=== PATIENT | male | born 1975 | race Caucasian/White ===

== ENCOUNTER 2017-04-20 15:09 | Emergency (ER) | payer OTHER, BC ==
[2017-04-20] MEDS ORDERED: Ketorolac 30 MG/ML SDV IM ONE (15:30)
--- NOTE | 2017-04-21 01:59 | EDM.PDOC ---
ED HPI GENERAL MEDICAL PROBLEM - General Chief Complaint: Back Pain or Injury Stated Complaint: BACK PAIN Time Seen by Provider: 04/20/17 15:20 Source of Information: Reports: Patient History Limitations: Reports: No Limitations - History of Present Illness INITIAL COMMENTS - FREE TEXT/NARRATIVE: Pt. states that he was pushing snow with a shovel, and states that the blade of the shovel hit uneven ground. Pt. states that this caused him to awkwardly turn at the waist, unjuring his back. He states that the pain is located in mid lower back and radiates down his posterior L leg and into his 1st and 2nd toes. He states this injury happened just prior to coming to the ER. He denies any "cracking" or "popping" and denies any incontinence or retention of stool or feces. Onset Date: 04/21/17 Location: Reports: Back, Lower Extremity, Left, Radiates to Quality: Reports: Ache Severity: Moderate Left Back Pain Score (Numeric/FACES): 8 - Related Data Allergies Allergy/AdvReac Type Severity Reaction Status Date / Time acetaminophen [From Tylox] AdvReac Dizziness Verified 04/20/17 15:32 hydromorphone [From Dilaudid] AdvReac Dizziness Verified 04/20/17 15:32 oxycodone AdvReac Dizziness Verified 04/20/17 15:32 Home Meds: Home Meds Cyclobenzaprine [Flexeril] 10 mg PO BID PRN 04/20/17 [History] Past Medical History - Past Health History Medical/Surgical History: Denies Medical/Surgical History Social & Family History - Tobacco Use Smoking Status *Q: Current Every Day Smoker Years of Tobacco use: 30 Packs/Tins Daily: 1 - Recreational Drug Use Recreational Drug Use: Yes Drug Use in Last 12 Months: Yes Recreational Drug Type: Reports: Marijuana/Hashish Recreational Drug Use Frequency: Socially ED ROS GENERAL - Review of Systems Review Of Systems: See Below Constitutional: Reports: No Symptoms Respiratory: Reports: No Symptoms Cardiovascular: Reports: No Symptoms GI/Abdominal: Reports: No Symptoms : Reports: No Symptoms Musculoskeletal: Reports: Back Pain Skin: Reports: No Symptoms Neurological: Reports: Paresthesia (radiculopathy to R lower extremity) ED EXAM,LOWER BACK PAIN/INJURY - Physical Exam Exam: See Below Exam Limited By: No Limitations General Appearance: Alert, WD/WN, No Apparent Distress Respiratory/Chest: No Respiratory Distress, Lungs Clear, Normal Breath Sounds, No Accessory Muscle Use, Chest Non-Tender Cardiovascular: Normal Peripheral Pulses, Regular Rate, Rhythm, No Edema, No Gallop, No JVD, No Murmur, No Rub Extremities: Normal Inspection, Normal Range of Motion, Non-Tender, No Pedal Edema, Normal Capillary Refill Neurological: Alert, Normal Dorsiflexion, CN II-XII Intact, Normal Plantar Flexion, Normal Reflexes, Straight Leg Raise (L), Difficulty Walking DTR - Lower Extremities: 2+: Knee (R), Knee (L) Course - Vital Signs Last Recorded V/S: Last Vital Signs Temp 35.7 C 04/20/17 15:33 Pulse 110 H 04/20/17 15:33 Resp 16 04/20/17 15:33 BP 142/99 H 04/20/17 15:33 Pulse Ox 99 04/20/17 15:33 - Orders/Labs/Meds Orders: Active Orders 24 hr Category Date Time Status Lumbar Spine 2 or 3V [CR] Stat Exams 04/20/17 15:21 Taken Meds: Medications Discontinued Medications Generic Name Dose Route Start Last Admin Trade Name Bennyq PRN Reason Stop Dose Admin Ketorolac Tromethamine 30 mg 04/20/17 15:30 04/20/17 15:47 Toradol IM 04/20/17 15:31 30 mg ONETIME ONE Administration Orphenadrine Citrate 60 mg 04/20/17 15:31 04/20/17 15:46 Norflex IM 04/20/17 15:32 60 mg ONETIME ONE Administration - Radiology Interpretation Free Text/Narrative:: lumbar series was negative Departure - Departure Time of Disposition: 16:45 Disposition: Home, Self-Care 01 Clinical Impression: Sciatica, Low back pain radiating to left lower extremity - Discharge Information Instructions: Acetaminophen; Hydrocodone tablets or capsules, Cyclobenzaprine tablets, Back Pain, Adult, [id number], Low Back Strain Rehab-SportsMed Referrals: PCP,None [Primary Care Provider] - Forms: ED Department Discharge Additional Instructions: Physical therapy will contact you regarding an appointment date and time. [facility] 5/325mg 1 every 6 hours as needed for pain. Flexeril 10mg three times daily. Ibuprofen 600mg every 6 hours. Do the exercises we discussed. Walk as much as possible. - My Orders Last 24 Hours: My Active Orders 04/20/17 15:21 Lumbar Spine 2 or 3V [CR] Stat - Assessment/Plan Last 24 Hours: My Active Orders 04/20/17 15:21 Lumbar Spine 2 or 3V [CR] Stat
== END 2017-04-20 16:45 | disposition home or self-care (01) ==
LOC: VM.ED 15:09
DX: M54.42 Lumbago with sciatica, left side (principal); Z88.6 Allergy status to analgesic agent; Z88.5 Allergy status to narcotic agent; F17.210 Nicotine dependence, cigarettes, uncomplicated
CPT/HCPCS: 72100; 96374; 96375; 99283; J1885; J2360

== ENCOUNTER 2020-11-20 06:41 | Emergency (ER) | payer MEDICAID ==
--- NOTE | 2020-11-20 07:06 | EDM.PDOC ---
ED HPI GENERAL MEDICAL PROBLEM - General Chief Complaint: Abdominal Pain Stated Complaint: severe ab pain Time Seen by Provider: 11/20/20 06:45 Source of Information: Reports: Patient, Family History Limitations: Reports: No Limitations - History of Present Illness INITIAL COMMENTS - FREE TEXT/NARRATIVE: 45-year-old white male who presents with sudden onset of right-sided abdominal pain x1 hour patient states it woke him up with a sudden sharp shooting pain that is progressively gotten worse now a 10 out of 10 sharp and stabbing just all over the right side of abdomen. Patient states he has been fine up until this he has had no other complaints at all he denies any nausea or vomiting or fever at this time no anorexia he has back pain which is chronic but states it is not related to this this is totally different. No other sick contacts positive p.o. yesterday with no issues Onset: Today Duration: Hour(s): Location: Reports: Abdomen Quality: Reports: Stabbing Severity: Severe Improves with: Reports: None Worsens with: Reports: None Associated Symptoms: Reports: No Other Symptoms Right Middle Abdomen Pain Score (Numeric/FACES): 10 - Related Data Allergies Allergy/AdvReac Type Severity Reaction Status Date / Time acetaminophen [From Tylox] AdvReac Dizziness Verified 04/20/17 15:32 hydromorphone [From Dilaudid] AdvReac Dizziness Verified 04/20/17 15:32 oxycodone AdvReac Dizziness Verified 04/20/17 15:32 Home Meds: Home Meds Adalimumab [Humira Pen] 40 mg SQ Q14D 11/20/20 [History] DULoxetine [Cymbalta] 30 mg PO DAILY 11/20/20 [History] Ibuprofen 800 mg PO BID 11/20/20 [History] Pregabalin [Lyrica] 200 mg PO TID 11/20/20 [History] Sildenafil Citrate [Viagra] 50 mg PO DAILY PRN 11/20/20 [History] Past Medical History - Past Health History Medical/Surgical History: Denies Medical/Surgical History ED ROS GENERAL - Review of Systems Review Of Systems: See Below Constitutional: Reports: No Symptoms HEENT: Reports: No Symptoms Respiratory: Reports: No Symptoms Cardiovascular: Reports: No Symptoms Endocrine: Reports: No Symptoms GI/Abdominal: Reports: Abdominal Pain. Denies: Constipation, Diarrhea, Decreased Appetite, Flatus, Nausea, Vomiting : Reports: No Symptoms Musculoskeletal: Reports: No Symptoms Skin: Reports: No Symptoms Neurological: Reports: No Symptoms Psychiatric: Reports: No Symptoms Hematologic/Lymphatic: Reports: No Symptoms Immunologic: Reports: No Symptoms ED EXAM, GI/ABD - Physical Exam Exam: See Below Exam Limited By: No Limitations General Appearance: Alert, WD/WN, No Apparent Distress, Other (Patient looks uncomfortable vital signs are noted) Eyes: Bilateral: Normal Appearance Nose: Normal Inspection, Normal Mucosa, No Blood Throat/Mouth: Normal Inspection, Normal Lips, Normal Teeth, Normal Gums, Normal Oropharynx, Normal Voice, No Airway Compromise Head: Atraumatic, Normocephalic Neck: Normal Inspection, Supple, Non-Tender, Full Range of Motion Respiratory/Chest: No Respiratory Distress, Lungs Clear, Normal Breath Sounds, No Accessory Muscle Use, Chest Non-Tender Cardiovascular: Normal Peripheral Pulses, Regular Rate, Rhythm, No Edema, No Gallop, No JVD, No Murmur, No Rub GI/Abdominal Exam: Normal Bowel Sounds, Soft, No Organomegaly, No Abnormal Bruit, No Mass, Pelvis Stable, Tender, Other (Negative obturator negative psoas positive rebound diffusely across the right lower and upper quadrant negative heel slap negative pelvic rock no peritoneal signs). No: Non-Tender, No Distention, Guarding, Rigid, Rebound Back Exam: Normal Inspection, Full Range of Motion. No: CVA Tenderness (L), CVA Tenderness (R) Extremities: Normal Inspection, Normal Range of Motion, Non-Tender, No Pedal Edema, Normal Capillary Refill Neurological: Alert, Oriented, CN II-XII Intact, Normal Cognition Psychiatric: Normal Affect, Normal Mood, Anxious Skin Exam: Warm, Dry, Intact, Normal Color, No Rash Lymphatic: No Adenopathy #1 Interpretation EKG Date: 11/20/20 Time: 07:00 Rhythm: NSR [place]: Normal P-Wave: Present QRS: Normal ST-T: Normal QT: Normal Course - Vital Signs Text/Narrative:: CBC CMP urinalysis EKG CT abdomen pelvis we will start with Toradol 30 mg IV with a bolus Patient's only surgical history is his right wrist No family abdominal history Labs within normal limit CT abdomen pelvis with IV contrast impression colonic diverticulosis no evidence of diverticulitis is no other acute findings Recheck patient states he feels little bit better after medications will give Bentyl 20 mg IM and recheck Patient was rechecked after given Bentyl says his pain is about a 2 out of 3 vital signs are all within normal limits normal blood pressure heart rate Last Recorded V/S: Last Vital Signs Temp 36.6 C 11/20/20 06:56 Pulse 99 11/20/20 07:43 Resp 16 11/20/20 07:43 BP 110/72 11/20/20 07:43 Pulse Ox 99 11/20/20 07:43 - Orders/Labs/Meds Labs: Laboratory Tests 11/20/20 11/20/20 11/20/20 Range/Units 06:52 06:52 06:58 WBC 12.0 H (4.0-10.0) x10^3/uL RBC 4.71 (4.5-6.0) x10^6/uL Hgb 15.0 (14.0-18.0) g/dL Hct 41.1 (40.0-52.0) % MCV 87.3 (78.0-93.0) fL MCH 31.8 (26.0-32.0) pg MCHC 36.5 H (32.0-36.0) g/dL RDW Coeff of Nalini 12.6 (10.0-15.0) % Plt Count 246 (130-400) x10^3/uL Immature Gran % (Auto) 0.20 (0.00-0.43) % Neut % (Auto) 51.8 (50.0-80.0) % Lymph % (Auto) 37.8 (25.0-50.0) % Esmeralda % (Auto) 9.5 (2.0-11.0) % Eos % (Auto) 0.4 (0.0-4.0) % Baso % (Auto) 0.3 (0.2-1.2) % Neut # (Auto) 6.2 (1.8-7.7) x10^3/uL Lymph # (Auto) 4.5 (1.0-4.8) x10^3/uL Esmeralda # (Auto) 1.1 H (0.0-0.8) x10^3/uL Eos # (Auto) 0.1 (0.0-0.5) x10^3/uL Baso # (Auto) 0.0 (0.0-0.2) x10^3/uL Immature Gran # (Auto) 0.02 (0.00-0.07) x10^3/uL Sodium 139 (136-145) mmol/L Potassium 3.6 (3.5-5.1) mmol/L Chloride 102 (98-107) mmol/L Carbon Dioxide 19 L (21-32) mmol/L Anion Gap 21.6 H (5-15) mmol/L BUN 18 (7-18) mg/dL Creatinine 1.2 (0.70-1.30) mg/dL Est Cr Clr Drug Dosing 79.37 mL/min Estimated GFR (MDRD) > 60 Glucose 113 H (70-99) mg/dL Calcium 9.2 (8.5-10.1) mg/dL Corrected Calcium 9.1 (8.5-10.1) mg/dL Total Bilirubin 0.4 (0.2-1.0) mg/dL AST 28 (15-37) U/L ALT 25 (16-63) U/L Alkaline Phosphatase 81 (46-116) U/L Total Protein 7.7 (6.4-8.2) g/dL Albumin 4.1 (3.4-5.0) g/dL Globulin 3.6 Albumin/Globulin Ratio 1.14 Urine Color Yellow (YELLOW) Urine Appearance Clear (CLEAR) Urine pH 6.5 (5.0-8.0) Ur Specific [place] 1.020 Urine Protein 30 H (NEGATIVE) mg/dL Urine Glucose (UA) Negative (NEGATIVE) mg/dL Urine Ketones Trace H (NEGATIVE) mg/dL Urine Occult Blood Negative (NEGATIVE) Urine Nitrite Negative (NEGATIVE) Urine Bilirubin Negative (NEGATIVE) Urine Urobilinogen 0.2 (0.2) EU/dL Ur Leukocyte Esterase Negative (NEGATIVE) U Hyaline Cast (Auto) Rare Urine RBC Not seen (NOT SEEN) /HPF Urine WBC Not seen (NOT SEEN) /HPF Ur Squamous Epith Cells Not seen (NOT SEEN) /HPF Amorphous Sediment Few Urine Bacteria Not seen (NOT SEEN) /HPF Urine Mucus Not seen (NOT SEEN) /LPF Meds: Medications Discontinued Medications Generic Name Dose Route Start Last Admin Trade Name Freq PRN Reason Stop Dose Admin Dicyclomine HCl 20 mg 11/20/20 09:01 Dicyclomine 20 Mg/2 Ml Sdv IM 11/20/20 09:02 ONETIME ONE Sodium Chloride 1,000 mls @ 999 mls/hr 11/20/20 06:58 11/20/20 07:14 Normal Saline IV 11/20/20 07:58 999 mls/hr ONETIME ONE Administration Iopamidol 100 ml 11/20/20 08:24 11/20/20 08:14 Iopamidol 612 Mg/Ml 100 Ml Bottle IVPUSH 11/20/20 08:25 100 ml ONETIME ONE Administration Ketorolac Tromethamine 30 mg 11/20/20 06:58 11/20/20 07:15 Ketorolac 30 Mg/Ml Sdv IVPUSH 11/20/20 06:59 30 mg ONETIME ONE Administration Morphine Sulfate 4 mg 11/20/20 07:23 11/20/20 07:30 Morphine 4 Mg/Ml Syringe IVPUSH 11/20/20 07:24 4 mg ONETIME ONE Administration Morphine Sulfate 4 mg 11/20/20 08:17 11/20/20 08:24 Morphine 4 Mg/Ml Syringe IVPUSH 11/20/20 08:18 4 mg ONETIME ONE Administration Ondansetron HCl 4 mg 11/20/20 07:24 11/20/20 07:30 Ondansetron 4 Mg/2 Ml Sdv IVPUSH 11/20/20 07:25 4 mg ONETIME ONE Administration Departure - Departure Time of Disposition: 09:35 Disposition: Home, Self-Care 01 Condition: Good Clinical Impression: Abdominal pain, Diverticulosis - Discharge Information *PRESCRIPTION DRUG MONITORING PROGRAM REVIEWED*: No *COPY OF PRESCRIPTION DRUG MONITORING REPORT IN PATIENT CRISTINA: No Instructions: Abdominal Pain, Adult, [id number], Diverticulosis Referrals: Shelia Perez MD [Primary Care Provider] - Forms: ED Department Discharge Additional Instructions: Follow-up with your primary care provider in the next 24 hours I recommend a soft diet for the next 24 to 48 hours such as chicken noodle soup mashed potatoes bananas rice to let the stomach and bowel rest Make sure you are drinking plenty of clear fluids You may take your Bentyl 10 mg 1-2 tabs every 8 hours as needed You may take your Zofran 4 mg 1 tablet every 4-6 hours as needed for nausea or vomiting Return to the emergency room if anything changes or gets worse Sepsis Event Note (ED) - Focused Exam Vital Signs: Vital Signs Temp Pulse Resp BP Pulse Ox 11/20/20 07:43 99 16 110/72 99 11/20/20 07:10 108 H 28 H 111/73 97 11/20/20 06:56 36.6 C 103 H 43 H 173/109 H 98 - Problem List & Annotations (1) Abdominal pain SNOMED Code(s): 35575771 Code(s): R10.9 - UNSPECIFIED ABDOMINAL PAIN Status: Acute Current Visit: Yes (2) Diverticulosis SNOMED Code(s): 951977167 Code(s): K57.90 - DVRTCLOS OF INTEST, PART UNSP, W/O PERF OR ABSCESS W/O BLEED Status: Acute Current Visit: Yes
[2020-11-20] MEDS: Sodium Chloride 0.9% 1,000 ML IV ONE (07:14)
[2020-11-20] MEDS: Ketorolac 30 MG/ML SDV IVPUSH ONE (07:15)
[2020-11-20 07:24] LABS: CHLORIDE,CL 102 mmol/L (98-107); SODIUM,NA 139 mmol/L (136-145)
[2020-11-20 07:26] LABS: ANION GAP 21.6 mmol/L (5-15)
[2020-11-20] MEDS: Ondansetron 4 MG/2 ML SDV IVPUSH ONE (07:30)
[2020-11-20] MEDS: Morphine 4 MG/ML Syringe IVPUSH ONE ×2 (07:30→08:24)
[2020-11-20] MEDS: Iopamidol 612 MG/ML 100 ML Bottle IVPUSH ONE (08:14)
--- NOTE | 2020-11-20 08:57 | CT ---
[id number] CT/CT Abdomen Pelvis W IV EXAM: CT Abdomen Pelvis W IV CLINICAL DATA: ABDOMEN PAIN. COMPARISON STUDY: None. FINDINGS: Dependent atelectasis at the lung bases bilaterally. Liver, spleen, gallbladder, pancreas, adrenal glands, and kidneys are unremarkable. No bowel obstruction or inflammation. The appendix is visualized and appears normal. Colonic diverticulosis without evidence of acute diverticulitis. No lymphadenopathy, free fluid, or pneumoperitoneum. Scattered changes of spondylosis the spine. No fracture or osseous lesion. IMPRESSION: Colonic diverticulosis without evidence of acute diverticulitis. No definite acute CT findings within the abdomen or pelvis to explain the patient's symptoms. Sergio Romero DO 11/20/20 [id number] Thank you for allowing us to participate in the care of your patient.
[2020-11-20] MEDS: Dicyclomine 20 MG/2 ML SDV IM ONE (09:10)
== END 2020-11-20 09:45 | disposition home or self-care (01) ==
LOC: VM.ED 06:41
DX: K57.32 Diverticulitis of large intestine without perforation or abscess without bleeding (principal); Z88.6 Allergy status to analgesic agent; Z88.5 Allergy status to narcotic agent
CPT/HCPCS: 74177; 80053; 81001; 85025; 93005; 93010; 96372; 96374; 96375; 96376; 99284; 99284-25; J0500; J1885; J2270; J2405; J7030; Q9967

== ENCOUNTER 2022-03-06 16:57 | Emergency (ER) | payer MEDICAID ==
[2022-03-06] MEDS ORDERED: HYDROmorphone 0.5 MG/0.5 ML Syringe IVPUSH ONE ×4 (17:03→20:23)
[2022-03-06] MEDS ORDERED: Sodium Chloride 0.9% 10 ML Syringe FLUSH PRN (17:04)
[2022-03-06] MEDS ORDERED: Ondansetron 4 MG/2 ML SDV IVPUSH ONE (17:04)
[2022-03-06] MEDS ORDERED: Sodium Chloride 0.9% 1,000 ML IV SCH ×2 (17:15→18:00)
[2022-03-06 17:45] LABS: ANION GAP 20.1 mmol/L (5-15)
[2022-03-06] MEDS ORDERED: Iopamidol 612 MG/ML 100 ML Bottle IVPUSH ONE (18:24)
[2022-03-06] MEDS ORDERED: Piperacillin/Tazobactam 3.375 GM in Sodium Chloride 0.9% 100 ML IV ONE (19:46)
[2022-03-06] MEDS ORDERED: Lactated Ringers 1,000 ML IV ONE (20:11)
[2022-03-06] MEDS ORDERED: Prochlorperazine 10 MG/2 ML SDV IV ONE (20:23)
== END 2022-03-06 21:40 | disposition short-term general hospital (02) ==
LOC: VM.ED 16:57
DX: K81.9 Cholecystitis, unspecified (principal); Z88.6 Allergy status to analgesic agent; Z88.5 Allergy status to narcotic agent
CPT/HCPCS: 36415; 74177; 80053; 81001; 82150; 83605; 83690; 83735; 84100; 85025; 86140; 87040; 96361; 96365; 96375; 96376; 99284; 99285-25; J0780; J1170; J2405; J2543; J3490; J7030; J7120; Q9967

== ENCOUNTER 2024-11-29 12:33 | Emergency (ER) | payer MEDICAID ==
[2024-11-29 12:50] LABS: BASOPHILS ABSOLUTE AUTO 0.0 x10^3/uL (0.0-0.2); BASOPHILS PERCENT AUTO 0.1 % (0.2-1.2); EOSINOPHILS ABSOLUTE AUTO 0.0 x10^3/uL (0.0-0.5); EOSINOPHILS PERCENT AUTO 0.2 % (0.0-4.0); IMMATURE GRAN ABSOLUTE AUTO 0.02 x10^3/uL (0.00-0.07); IMMATURE GRAN PERCENT AUTO 0.10 % (0.00-0.43); LYMPHOCYTES ABSOLUTE AUTO 2.5 x10^3/uL (1.0-4.8); LYMPHOCYTES PERCENT AUTO 14.4 % (25.0-50.0); MONOCYTES ABSOLUTE AUTO 1.2 x10^3/uL (0.0-0.8); MONOCYTES PERCENT AUTO 6.7 % (2.0-11.0); NEUTROPHILS ABSOLUTE AUTO 13.7 x10^3/uL (1.8-7.7); NEUTROPHILS PERCENT AUTO 78.5 % (50.0-80.0); PLATELET COUNT,PLT 182 x10^3/uL (130-400); RED BLOOD CELL COUNT 4.81 x10^6/uL (4.5-6.0); WHITE BLOOD CELL COUNT,WBC 17.5 x10^3/uL (4.0-10.0)
[2024-11-29 12:58] LABS: APPEARANCE,URINE CLEAR (CLEAR); GLUCOSE,URINE NEGATIVE (NEGATIVE); OCCULT BLOOD,URINE MODERATE (NEGATIVE)
[2024-11-29] MEDS: Ondansetron 4 MG/2 ML SDV IVPUSH ONE (13:02)
[2024-11-29 13:03] LABS: SQUAMOUS EPITHELIAL CELLS,UR FEW /HPF (NOT SEEN)
[2024-11-29 13:11] LABS: A/G RATIO 1.19; ALANINE AMINOTRANSFERASE,ALT 29.0 U/L (16-63); ASPARTATE AMNIOTRANSFERASE,AST 18.0 U/L (15-37); BILIRUBIN TOTAL 0.8 mg/dL (0.2-1.0); BLOOD UREA NITROGEN,BUN 8.0 mg/dL (7-18); CARBON DIOXIDE,CO2 25.0 mmol/L (21-32); CHLORIDE,CL 102.0 mmol/L (98-107); CREATININE 1.0 mg/dL (0.70-1.30); EST CRCL DRUG DOSING (CG) 88.35 mL/min; GLUCOSE RANDOM 108.0 mg/dL (70-99); POTASSIUM,K 4.1 mmol/L (3.5-5.1); PROTEIN TOTAL,TP 8.1 g/dL (6.4-8.2); SODIUM,NA 138.0 mmol/L (136-145)
[2024-11-29 13:12] LABS: ESTIMATED GFR 93.0 mL/min (>=60)
[2024-11-29] MEDS: Iopamidol 612 MG/ML 100 ML Bottle IVPUSH ONE (13:34)
== END 2024-11-29 15:30 | disposition short-term general hospital (02) ==
LOC: VM.ED 12:33 → SUPCPDRO 12:33 → VM.ED 15:30
DX: K35.30 Acute appendicitis with localized peritonitis, without perforation or gangrene (principal); Z79.899 Other long term (current) drug therapy
CPT/HCPCS: 74177; 80053; 81001; 85025; 96365; 96375; 96376; 99284; 99285-25; J1171; J2405; J2543; Q9967

== ENCOUNTER 2024-12-01 22:02 | Inpatient (IN) | payer MEDICAID ==
[2024-12-01] MEDS: Ondansetron 4 MG/2 ML SDV IVPUSH ONE (22:15)
[2024-12-01 22:18] LABS: PLATELET COUNT,PLT 176 x10^3/uL (130-400); RED BLOOD CELL COUNT 4.58 x10^6/uL (4.5-6.0)
[2024-12-01 22:37] LABS: WHITE BLOOD CELL COUNT,WBC 21.5 x10^3/uL (4.0-10.0)
[2024-12-01 22:39] LABS: LYMPHOCYTES ABSOLUTE MAN 1.9 x10^3/uL (1.0-4.8); LYMPHOCYTES PERCENT MAN 9 % (25-50); MONOCYTES ABSOLUTE MAN 0.9 x10^3/uL (0.0-0.8); MONOCYTES PERCENT MAN 4 % (2-11); NEUTROPHILS ABSOLUTE MAN 18.7 x10^3/uL (1.8-7.7); SEG NEUTROPHILS PERCENT MAN 87 % (50-80)
[2024-12-01 22:40] LABS: A/G RATIO 0.86; ALANINE AMINOTRANSFERASE,ALT 24.0 U/L (16-63); ASPARTATE AMNIOTRANSFERASE,AST 15.0 U/L (15-37); BILIRUBIN TOTAL 1.2 mg/dL (0.2-1.0); BLOOD UREA NITROGEN,BUN 9.0 mg/dL (7-18); CARBON DIOXIDE,CO2 24.0 mmol/L (21-32); CHLORIDE,CL 102.0 mmol/L (98-107); CREATININE 1.0 mg/dL (0.70-1.30); EST CRCL DRUG DOSING (CG) 88.35 mL/min; ESTIMATED GFR 93.0 mL/min (>=60); GLUCOSE RANDOM 107.0 mg/dL (70-99); POTASSIUM,K 3.6 mmol/L (3.5-5.1); PROTEIN TOTAL,TP 7.8 g/dL (6.4-8.2); SODIUM,NA 139.0 mmol/L (136-145)
[2024-12-01] MEDS: Lactated Ringers 1,000 ML IV ONE (22:40)
[2024-12-01] MEDS: Iopamidol 612 MG/ML 100 ML Bottle IVPUSH ONE (23:34)
[2024-12-02] MEDS ORDERED: Acetaminophen/oxyCODONE 325-5 MG Tab PO PRN (02:17)
[2024-12-02] MEDS ORDERED: Magnesium Hydroxide 400 MG/5 ML Susp 30 ML Cup PO PRN (02:17)
[2024-12-02] MEDS: metroNIDAZOLE/Normal Saline 500 MG in Premix Bag 1 BAG IV ONE (03:04)
[2024-12-02 06:58] LABS: BASOPHILS ABSOLUTE AUTO 0.0 x10^3/uL (0.0-0.2); BASOPHILS PERCENT AUTO 0.1 % (0.2-1.2); EOSINOPHILS ABSOLUTE AUTO 0.1 x10^3/uL (0.0-0.5); EOSINOPHILS PERCENT AUTO 0.4 % (0.0-4.0); IMMATURE GRAN ABSOLUTE AUTO 0.05 x10^3/uL (0.00-0.07); IMMATURE GRAN PERCENT AUTO 0.30 % (0.00-0.43); LYMPHOCYTES ABSOLUTE AUTO 1.4 x10^3/uL (1.0-4.8); LYMPHOCYTES PERCENT AUTO 7.6 % (25.0-50.0); MONOCYTES ABSOLUTE AUTO 1.4 x10^3/uL (0.0-0.8); MONOCYTES PERCENT AUTO 7.6 % (2.0-11.0); NEUTROPHILS ABSOLUTE AUTO 15.1 x10^3/uL (1.8-7.7); NEUTROPHILS PERCENT AUTO 84.0 % (50.0-80.0); RED BLOOD CELL COUNT 4.44 x10^6/uL (4.5-6.0); WHITE BLOOD CELL COUNT,WBC 17.9 x10^3/uL (4.0-10.0)
[2024-12-02 07:06] LABS: PLATELET COUNT,PLT 165 x10^3/uL (130-400)
[2024-12-02 07:16] LABS: BLOOD UREA NITROGEN,BUN 7 mg/dL (7-18); CARBON DIOXIDE,CO2 26 mmol/L (21-32); CHLORIDE,CL 100 mmol/L (98-107); CREATININE 1.0 mg/dL (0.70-1.30); GLUCOSE RANDOM 99 mg/dL (70-99); POTASSIUM,K 3.6 mmol/L (3.5-5.1); SODIUM,NA 138 mmol/L (136-145)
[2024-12-02 07:17] LABS: ESTIMATED GFR 93 mL/min (>=60)
[2024-12-02] MEDS: metroNIDAZOLE/Normal Saline 500 MG in Premix Bag 1 BAG IV SCH (08:57)
[2024-12-02] MEDS: Sodium Chloride 0.9% 10 ML Syringe FLUSH PRN (21:10)
[2024-12-02] MEDS: Sennosides/Docusate Sodium 50-8.6 MG Tab PO SCH (21:11)
[2024-12-03 08:02] LABS: BASOPHILS ABSOLUTE AUTO 0.0 x10^3/uL (0.0-0.2); BASOPHILS PERCENT AUTO 0.1 % (0.2-1.2); EOSINOPHILS ABSOLUTE AUTO 0.1 x10^3/uL (0.0-0.5); EOSINOPHILS PERCENT AUTO 0.8 % (0.0-4.0); IMMATURE GRAN ABSOLUTE AUTO 0.05 x10^3/uL (0.00-0.07); IMMATURE GRAN PERCENT AUTO 0.30 % (0.00-0.43); LYMPHOCYTES ABSOLUTE AUTO 1.1 x10^3/uL (1.0-4.8); LYMPHOCYTES PERCENT AUTO 6.6 % (25.0-50.0); MONOCYTES ABSOLUTE AUTO 1.5 x10^3/uL (0.0-0.8); MONOCYTES PERCENT AUTO 9.2 % (2.0-11.0); NEUTROPHILS ABSOLUTE AUTO 13.5 x10^3/uL (1.8-7.7); NEUTROPHILS PERCENT AUTO 83.0 % (50.0-80.0); PLATELET COUNT,PLT 192 x10^3/uL (130-400); RED BLOOD CELL COUNT 4.40 x10^6/uL (4.5-6.0); WHITE BLOOD CELL COUNT,WBC 16.3 x10^3/uL (4.0-10.0)
[2024-12-03 08:09] LABS: A/G RATIO 0.69; ALANINE AMINOTRANSFERASE,ALT 37.0 U/L (16-63); ASPARTATE AMNIOTRANSFERASE,AST 20.0 U/L (15-37); BILIRUBIN TOTAL 0.9 mg/dL (0.2-1.0); BLOOD UREA NITROGEN,BUN 6.0 mg/dL (7-18); CARBON DIOXIDE,CO2 29.0 mmol/L (21-32); CHLORIDE,CL 97.0 mmol/L (98-107); CREATININE 0.9 mg/dL (0.70-1.30); EST CRCL DRUG DOSING (CG) 98.17 mL/min; GLUCOSE RANDOM 105.0 mg/dL (70-99); POTASSIUM,K 3.7 mmol/L (3.5-5.1); PROTEIN TOTAL,TP 7.1 g/dL (6.4-8.2); SODIUM,NA 134.0 mmol/L (136-145)
[2024-12-03 08:12] LABS: ESTIMATED GFR 106.0 mL/min (>=60)
[2024-12-03] MEDS: Ondansetron 4 MG/2 ML SDV IV PRN (11:13)
[2024-12-04 07:39] LABS: BASOPHILS ABSOLUTE AUTO 0.0 x10^3/uL (0.0-0.2); BASOPHILS PERCENT AUTO 0.2 % (0.2-1.2); EOSINOPHILS ABSOLUTE AUTO 0.1 x10^3/uL (0.0-0.5); EOSINOPHILS PERCENT AUTO 1.3 % (0.0-4.0); IMMATURE GRAN ABSOLUTE AUTO 0.06 x10^3/uL (0.00-0.07); IMMATURE GRAN PERCENT AUTO 0.60 % (0.00-0.43); LYMPHOCYTES ABSOLUTE AUTO 1.3 x10^3/uL (1.0-4.8); LYMPHOCYTES PERCENT AUTO 11.8 % (25.0-50.0); MONOCYTES ABSOLUTE AUTO 1.2 x10^3/uL (0.0-0.8); MONOCYTES PERCENT AUTO 10.9 % (2.0-11.0); NEUTROPHILS ABSOLUTE AUTO 8.0 x10^3/uL (1.8-7.7); NEUTROPHILS PERCENT AUTO 75.2 % (50.0-80.0); PLATELET COUNT,PLT 162 x10^3/uL (130-400); RED BLOOD CELL COUNT 3.76 x10^6/uL (4.5-6.0); WHITE BLOOD CELL COUNT,WBC 10.6 x10^3/uL (4.0-10.0)
[2024-12-04 07:55] LABS: A/G RATIO 0.71; ALANINE AMINOTRANSFERASE,ALT 32.0 U/L (16-63); ASPARTATE AMNIOTRANSFERASE,AST 15.0 U/L (15-37); BILIRUBIN TOTAL 0.5 mg/dL (0.2-1.0); BLOOD UREA NITROGEN,BUN 5.0 mg/dL (7-18); CARBON DIOXIDE,CO2 28.0 mmol/L (21-32); CHLORIDE,CL 104.0 mmol/L (98-107); CREATININE 1.0 mg/dL (0.70-1.30); EST CRCL DRUG DOSING (CG) 88.35 mL/min; GLUCOSE RANDOM 102.0 mg/dL (70-99); POTASSIUM,K 3.6 mmol/L (3.5-5.1); PROTEIN TOTAL,TP 6.0 g/dL (6.4-8.2); SODIUM,NA 137.0 mmol/L (136-145)
[2024-12-04 07:57] LABS: ESTIMATED GFR 93.0 mL/min (>=60)
[2024-12-04] MEDS: Iopamidol 612 MG/ML 100 ML Bottle IVPUSH ONE (09:12)
[2024-12-05 06:54] LABS: BASOPHILS ABSOLUTE AUTO 0.0 x10^3/uL (0.0-0.2); BASOPHILS PERCENT AUTO 0.2 % (0.2-1.2); EOSINOPHILS ABSOLUTE AUTO 0.1 x10^3/uL (0.0-0.5); EOSINOPHILS PERCENT AUTO 1.6 % (0.0-4.0); IMMATURE GRAN ABSOLUTE AUTO 0.04 x10^3/uL (0.00-0.07); IMMATURE GRAN PERCENT AUTO 0.50 % (0.00-0.43); LYMPHOCYTES ABSOLUTE AUTO 1.3 x10^3/uL (1.0-4.8); LYMPHOCYTES PERCENT AUTO 16.0 % (25.0-50.0); MONOCYTES ABSOLUTE AUTO 0.8 x10^3/uL (0.0-0.8); MONOCYTES PERCENT AUTO 9.4 % (2.0-11.0); NEUTROPHILS ABSOLUTE AUTO 6.0 x10^3/uL (1.8-7.7); NEUTROPHILS PERCENT AUTO 72.3 % (50.0-80.0); PLATELET COUNT,PLT 198 x10^3/uL (130-400); RED BLOOD CELL COUNT 3.58 x10^6/uL (4.5-6.0); WHITE BLOOD CELL COUNT,WBC 8.3 x10^3/uL (4.0-10.0)
[2024-12-05 07:06] LABS: A/G RATIO 0.71; ALANINE AMINOTRANSFERASE,ALT 33.0 U/L (16-63); ASPARTATE AMNIOTRANSFERASE,AST 17.0 U/L (15-37); BILIRUBIN TOTAL 0.3 mg/dL (0.2-1.0); BLOOD UREA NITROGEN,BUN 5.0 mg/dL (7-18); CARBON DIOXIDE,CO2 28.0 mmol/L (21-32); CHLORIDE,CL 108.0 mmol/L (98-107); CREATININE 0.8 mg/dL (0.70-1.30); EST CRCL DRUG DOSING (CG) 110.44 mL/min; GLUCOSE RANDOM 96.0 mg/dL (70-99); POTASSIUM,K 3.6 mmol/L (3.5-5.1); PROTEIN TOTAL,TP 6.0 g/dL (6.4-8.2); SODIUM,NA 141.0 mmol/L (136-145)
[2024-12-05 07:07] LABS: ESTIMATED GFR 110.0 mL/min (>=60)
[2024-12-06 06:41] LABS: PLATELET COUNT,PLT 224.0 x10^3/uL (130-400); RED BLOOD CELL COUNT 3.86 x10^6/uL (4.5-6.0); WHITE BLOOD CELL COUNT,WBC 7.5 x10^3/uL (4.0-10.0)
== END 2024-12-06 13:00 | disposition home or self-care (01) | DRG 373 ==
LOC: VM.ED 22:02 → VM.MS 12-02 01:20
PROVIDERS: ADMIT Family Medicine; ATTEND Family Medicine
DX: K65.9 Peritonitis, unspecified (principal); M06.9 Rheumatoid arthritis, unspecified; E78.00 Pure hypercholesterolemia, unspecified; F32.A Depression, unspecified; F43.12 Post-traumatic stress disorder, chronic; E66.9 Obesity, unspecified; E86.0 Dehydration; F17.200 Nicotine dependence, unspecified, uncomplicated; D72.829 Elevated white blood cell count, unspecified; F41.9 Anxiety disorder, unspecified; F32.9 Major depressive disorder, single episode, unspecified; Z87.39 Personal history of other diseases of the musculoskeletal system and connective tissue; Z79.899 Other long term (current) drug therapy; Z68.29 Body mass index [BMI] 29.0-29.9, adult; Z90.49 Acquired absence of other specified parts of digestive tract
CPT/HCPCS: 36415; 74176; 74177; 80048; 80053; 83605; 85025; 85027; 86140; 87040; 96361; 96374; 96375; 99223-GT; 99284; 99285-25; A9270-GY; J0696; J1171; J1650; J1836; J2270; J2405; J7030; J7120; Q3014; Q9967